=== PATIENT | female | born 1985 | race Caucasian/White ===

== ENCOUNTER 2017-01-21 04:12 | Emergency (ER) | payer OTHER ==
[2017-01-21 06:45] LABS: HEMOGLOBIN 14.5 gm/dl (12.3-15.3); RED BLOOD COUNT 4.53 M/UL (4.00-5.10); WHITE BLOOD COUNT 15.9 K/UL (4.5-11.0)
[2017-01-21 07:03] LABS: BUN/CREATININE RATIO 15 (0-10)
== END 2017-01-21 07:35 | disposition home or self-care (01) ==
LOC: ER1 04:12
PROVIDERS: Physician Assistant
DX: M79.1 Myalgia (principal); R50.9 Fever, unspecified; R05 Cough; R10.30 Lower abdominal pain, unspecified; R00.0 Tachycardia, unspecified; F17.210 Nicotine dependence, cigarettes, uncomplicated
CPT/HCPCS: 36415; 80053; 81001; 83605; 84703; 85025; 87040; 87081; 87086; 87880; 96361; 96374; 99283; J1885; J7030